=== PATIENT | male | born 1990 | race Hispanic/Latino ===

== ENCOUNTER 2019-12-18 09:09 | Emergency (ER) | payer BC ==
[2019-12-18] MEDS ORDERED: IBUPROFEN 400 MG TAB ONE ×2 (21:40→21:42)
[2019-12-18] MEDS ORDERED: HYDROCODONE/APAP 7.5/325 MG TAB ONE (21:40)
--- NOTE | 2019-12-18 21:57 | RAD REPORT ---
EXAM DESCRIPTION: RAD - Ankle Left 3 View - 12/18/2019 9:49 pm CLINICAL HISTORY: PAIN COMPARISON: No comparisons FINDINGS: No fracture or dislocation is evident.
--- NOTE | 2019-12-18 22:02 | EDPHYS ---
Physician Documentation [facility] – [place], [place] Name: Armani Maria Age: 29 yrs Sex: Male : 1990 Arrival Date: 12/18/2019 Time: 21:12 Bed 20 Private MD: ED Physician Orlando Ness HPI: 12/17 21:30 This 29 yrs old Male presents to ER via Wheelchair with complaints of Ankle cp Injury. 21:30 The patient presents with an injury, pain, that is acute. The complaints affect the cp left ankle. 21:30 Onset: The symptoms/episode began/occurred today. cp 21:30 Context: resulted from stepping in hole in ground, The mechanism of injury involved cp inversion of the affected ankle. The patient is unable to bear weight. Associated signs and symptoms: Pertinent positives: tingling. Historical: - Allergies: 21:21 No Known Allergies; ll1 - PMHx: 21:21 seasonal allergies; ll1 - PSHx: 21:22 None; ll1 - Immunization history:: Flu vaccine status is unknown. - Social history:: Patient uses alcohol, only on a social basis. Patient/guardian denies using street drugs, tobacco products, Smoking status: Patient denies any tobacco usage or history of. ROS: 21:35 MS/extremity: Positive for pain, tenderness, of the left ankle, Negative for deformity. cp 21:35 Eyes: Negative for injury, pain, redness, and discharge. cp 21:35 Constitutional: Negative for body aches, chills, fever. 21:35 Cardiovascular: Negative for chest pain. 21:35 Respiratory: Negative for cough, shortness of breath. 21:35 Abdomen/GI: Negative for abdominal pain, vomiting, diarrhea. 21:35 Neuro: Negative for headache, weakness. 21:35 All other systems are negative. Exam: 21:40 Constitutional: The patient appears in no acute distress, alert, awake, well developed, cp well nourished. 21:40 Musculoskeletal/extremity: Extremities: grossly normal except: noted in the lateral cp malleolus of left ankle: pain, tenderness, There is no evidence of deformity, Perfusion: the extremity is normally perfused throughout, Sensation intact. Achilles tendon palpated and intact, no tenderness to palpation noted at proximal fibula and base of left fifth metatarsal. Vital Signs: 21:19 BP 150 / 104; Pulse 92; Resp 17; Temp 98.6; Pulse Ox 97% ; Pain 10/10; ll1 22:27 BP 128 / 95; Pulse 90; Resp 17; Pulse Ox 100% ; ll1 MDM: 21:18 Patient medically screened. 22:00 Data reviewed: vital signs, nurses notes, radiologic studies, plain films. 22:00 Differential diagnosis: fracture, sprain, dislocation, Achilles tendon rupture. cp Counseling: I had a detailed discussion with the patient and/or guardian regarding: the historical points, exam findings, and any diagnostic results supporting the discharge/admit diagnosis, radiology results, to return to the emergency department if symptoms worsen or persist or if there are any questions or concerns that arise at home. Response to treatment: the patient's symptoms have markedly improved after treatment, and as a result, I will discharge patient. 12/17 21:26 Order name: XRAY Ankle LEFT 3 view; Complete Time: 22:00 12/17 22:00 Interpretation: Report reviewed. 12/17 22:00 Order name: Crutches; Complete Time: 22:25 cp 12/17 22:00 Order name: Ankle Splint: Aircast; Complete Time: 22:25 cp Administered Medications: 21:40 Drug: Hydrocodone-Acetaminophen (7.5 mg-325 mg) 1 tabs Route: PO; jb4 22:34 Follow up: Response: No adverse reaction; Pain is decreased; RASS: Alert and Calm (0) jb4 21:40 Drug: Ibuprofen 800 mg Route: PO; jb4 22:33 Follow up: Response: No adverse reaction; Pain is decreased jb4 Disposition: 22:10 Chart complete. 12/18 11:01 Co-signature as Attending Physician, Orlando Ness MD I agree with the assessment and efrain plan of care. Disposition: 12/18/19 22:01 Discharged to Home. Impression: Sprain of ankle - left. - Condition is Stable. - Discharge Instructions: Ankle Sprain. - Prescriptions for Naprosyn 500 mg Oral Tablet - take 1 tablet by ORAL route 2 times per day take with food; 20 tablet. - Medication Reconciliation Form, Thank You Letter, Antibiotic Education, Prescription Opioid Use form. - Follow up: Martín Celis MD; When: 1 week; Reason: pain continues. - Problem is new. - Symptoms have improved. Signatures: Dispatcher [employer] EDMS Orlando Ness MD MD cha Page, Corey, CELINE PA cp Alexsander Bailey, RN RN jb4 Zina Gómez RN RN ll1 Corrections: (The following items were deleted from the chart) 12/17 22:34 22:01 12/18/2019 22:01 Discharged to Home. Impression: Sprain of ankle - left. jb4 Condition is Stable. Forms are Medication Reconciliation Form, Thank You Letter, Antibiotic Education, Prescription Opioid Use. Follow up: Martín Celis; When: 1 week; Reason: pain continues. Problem is new. Symptoms have improved. cp
--- NOTE | 2019-12-18 22:02 | ER ---
Nurse's Notes [facility] Name: Armani Maria Age: 29 yrs Sex: Male : 1990 Arrival Date: 12/18/2019 Time: 21:12 Bed 20 Private MD: Diagnosis: Sprain of ankle-left Presentation: 12/17 21:19 Chief complaint: Patient states: Rolled left ankle in a hole today at 1800. Pain and ll1 swelling since. Coronavirus screen: Proceed with normal triage. Patient denies a cough. Patient denies shortness of breath or difficulty breathing. Patient denies measured and/or subjective temperature greater than 100.4F prior to today's visit. Patient denies travel on a cruise ship or to a country the [facility] currently lists as an affected area. Patient denies contact with known and/or suspected case of COVID-19. Ebola Screen: Patient denies travel to an Ebola-affected area in the 21 days before illness onset. Initial Sepsis Screen: Does the patient meet any 2 criteria? HR > 90 bpm. No. Patient's initial sepsis screen is negative. Does the patient have a suspected source of infection? No. Patient's initial sepsis screen is negative. Risk Assessment: Do you want to hurt yourself or someone else? Patient reports no desire to harm self or others. Onset of symptoms was December 18, 2019. 21:19 Method Of Arrival: Wheelchair ll1 21:19 Acuity: BERT 4 ll1 Historical: - Allergies: 21:21 No Known Allergies; ll1 - PMHx: 21:21 seasonal allergies; ll1 - PSHx: 21:22 None; ll1 - Immunization history:: Flu vaccine status is unknown. - Social history:: Patient uses alcohol, only on a social basis. Patient/guardian denies using street drugs, tobacco products, Smoking status: Patient denies any tobacco usage or history of. Screenin:28 Abuse screen: Denies threats or abuse. Nutritional screening: No deficits noted. ll1 Tuberculosis screening: No symptoms or risk factors identified. Fall Risk Ambulatory Aid- Crutches/Cane/Walker (15 pts). Total Coelho Fall Scale indicates No Risk (0-24 pts). Assessment: 21:30 General: Appears in no apparent distress. uncomfortable, Behavior is calm, cooperative, jb4 appropriate for age. Pain: Complains of pain in left ankle Pain does not radiate. Pain currently is 10 out of 10 on a pain scale. Quality of pain is described as throbbing. Neuro: Level of Consciousness is awake, alert, obeys commands, Oriented to person, place, time, situation. Cardiovascular: Patient's skin is warm and dry. Respiratory: Airway is patent Respiratory effort is even, unlabored, Respiratory pattern is regular, symmetrical. GI: No signs and/or symptoms were reported involving the gastrointestinal system. : No signs and/or symptoms were reported regarding the genitourinary system. EENT: No signs and/or symptoms were reported regarding the EENT system. Derm: Skin is intact, Skin is pink, warm \T\ dry. Musculoskeletal: Circulation, motion, and sensation intact. Range of motion: limited in left ankle. 22:31 Reassessment: Patient appears in no apparent distress at this time. Patient and/or jb4 family updated on plan of care and expected duration. Pain level reassessed. Patient is alert, oriented x 3, equal unlabored respirations, skin warm/dry/pink. PT verbalized understanding of d/c and follow up instructions denies questions or concerns. Ambulated out of ED with crutches. Patient states feeling better. Vital Signs: 21:19 BP 150 / 104; Pulse 92; Resp 17; Temp 98.6; Pulse Ox 97% ; Pain 10/10; ll1 22:27 BP 128 / 95; Pulse 90; Resp 17; Pulse Ox 100% ; ll1 ED Course: 21:12 Patient arrived in ED. cl3 21:12 Orlando Viramontes PA is PHCP. cp 21:12 Orlando Ness MD is Attending Physician. cp 21:21 Triage completed. ll1 21:22 Arm band placed on Patient placed in an exam room, on a stretcher. ll1 21:30 Patient has correct armband on for positive identification. Bed in low position. Call jb4 light in reach. Side rails up X 1. 21:32 Alexsander Bailey, RN is Primary Nurse. jb4 21:49 XRAY Ankle LEFT 3 view In Process Unspecified. EDMS 22:00 Martín Celis MD is Referral Physician. cp 22:24 Crutch training done. Air stirrup applied to right ankle. mw2 22:32 No provider procedures requiring assistance completed. Patient did not have IV access jb4 during this emergency room visit. Administered Medications: 21:40 Drug: Hydrocodone-Acetaminophen (7.5 mg-325 mg) 1 tabs Route: PO; jb4 22:34 Follow up: Response: No adverse reaction; Pain is decreased; RASS: Alert and Calm (0) jb4 21:40 Drug: Ibuprofen 800 mg Route: PO; jb4 22:33 Follow up: Response: No adverse reaction; Pain is decreased jb4 Outcome: 22:01 Discharge ordered by . gaby 22:32 Discharged to home ambulatory, with crutches, with family. jb4 22:32 Condition: stable 22:32 Discharge instructions given to patient, Instructed on discharge instructions, follow up and referral plans. medication usage, crutch walking, Demonstrated understanding of instructions, follow-up care, medications, crutch walking, Prescriptions given X 1. 22:34 Patient left the ED. jb4 Signatures: Dispatcher [employer] EDMS Orlando Viramontes PA PA cp Bryson, James, RN RN jb4 Scout Melton mw2 Meño Gómez cl3 Nettie Tan, ROSALEE TURK Zina Gómez RN RN ll1 Corrections: (The following items were deleted from the chart) 22:25 22:24 Air stirrup applied to right ankle. mw2 mw2 22:34 22:32 Discharge instructions given to patient, Instructed on discharge instructions, jb4 follow up and referral plans. crutch walking, Demonstrated understanding of instructions, follow-up care, crutch walking, jb4
[2019-12-18 22:52] VITALS: TEMP 98.6
[2019-12-18 22:54] VITALS: BP 128/95; O2SAT 100
== END 2019-12-18 22:34 | disposition home or self-care (01) ==
LOC: ER 21:09
DX: S93.402A Sprain of unspecified ligament of left ankle, initial encounter (principal); X50.1XXA Overexertion from prolonged static or awkward postures, initial encounter
CPT/HCPCS: 99284